=== PATIENT | male | born 1995 | race Two or more races ===

== ENCOUNTER 2022-04-20 15:57 | Outpatient (REF) | payer MEDICAID, SELFPAY ==
--- NOTE | ~2022-04-20 | XR_ITS ---
EXAMINATION: XR ELBOW, RIGHT XR FOREARM, RIGHT CLINICAL INFORMATION: Pain, numbness. COMPARISON: Radiographs right shoulder 04/20/2022, right hand 04/20/2022 TECHNIQUE: Right elbow is imaged in 3 views. Right forearm is imaged in 2 views. There are total of 5 views. FINDINGS: Elbow: No fracture, dislocation, or destructive process. Normal bony mineralization. No periostitis. No elbow capsular effusion. Articular surfaces appear intact. No joint narrowing or erosive change. Forearm: Normal bony mineralization. No fracture, dislocation, destructive process, or arthropathy. No periostitis. XR/XR forearm RT 2V IMPRESSION: Normal right elbow and forearm.
--- NOTE | ~2022-04-20 | XR_ITS ---
EXAMINATION: XR SHOULDER, RIGHT CLINICAL INFORMATION: Pain, numbness COMPARISON: None TECHNIQUE: Right shoulder is imaged in 4 views. FINDINGS: No fracture, dislocation, destructive process. Glenohumeral joint appears normal. The acromioclavicular alignment is normal. There is small oval calcification adjacent to the proximal medial humeral neck consistent with calcific tendinosis long head biceps. 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
--- NOTE | ~2022-04-20 | XR_ITS ---
EXAMINATION: XR HAND, RIGHT CLINICAL INFORMATION: Pain, numbness COMPARISON: Radiographs right forearm 04/20/2022, right hand radiographs 02/10/2019 TECHNIQUE: PA, lateral, and oblique views of the right hand. FINDINGS: No acute or healing fracture, dislocation, destructive process. Ulnar variance is within neutral. No joint narrowing or erosive changes. No periostitis. Pronator quadratus fat pad appears normal. XR/XR hand RT min 3V IMPRESSION: Normal right hand.
--- NOTE | ~2022-04-20 | XR_ITS ---
EXAMINATION: XR ELBOW, RIGHT XR FOREARM, RIGHT CLINICAL INFORMATION: Pain, numbness. COMPARISON: Radiographs right shoulder 04/20/2022, right hand 04/20/2022 TECHNIQUE: Right elbow is imaged in 3 views. Right forearm is imaged in 2 views. There are total of 5 views. FINDINGS: Elbow: No fracture, dislocation, or destructive process. Normal bony mineralization. No periostitis. No elbow capsular effusion. Articular surfaces appear intact. No joint narrowing or erosive change. Forearm: Normal bony mineralization. No fracture, dislocation, destructive process, or arthropathy. No periostitis. XR/XR elbow RT min 3V IMPRESSION: Normal right elbow and forearm.
== END 2022-04-20 15:58 | disposition home or self-care (01) ==
LOC: HO.XRAY 15:57
PROVIDERS: Absent Provider Registered Nurse; PCP Registered Nurse; Visit Provider Family Medicine
DX: M79.601 Pain in right arm (principal); R20.0 Anesthesia of skin; Z91.81 History of falling
CPT/HCPCS: 73030; 73080; 73090; 73130

== ENCOUNTER → 2022-08-30 14:11 | Outpatient (REF) | payer MEDICAID, SELFPAY ==
--- NOTE | 2022-08-30 14:16 | HM_ITS ---
Conclusion: 1. Patient was monitored for total period of 1 day and 23 hours 2. Baseline was normal sinus rhythm with average heart of 91 beats per minute 3. Frequent sinus tachycardia, 43% of total times 4. No significant pauses or bradycardia noted 5. Very rare ectopy 6. Patient reported symptoms correlated with sinus rhythm MTDD
== END ==
LOC: HO.CARD 14:11
PROVIDERS: Visit Provider Registered Nurse
DX: R00.2 Palpitations (principal)
CPT/HCPCS: 93226; 93242

== ENCOUNTER 2023-01-07 11:55 | Emergency (ER) | payer MEDICAID, SELFPAY ==
[2023-01-07 11:58] VITALS: BP 141/82; PULSE 114; RESP 18; TEMP 37.7; O2SAT 97; BMI 23.6
--- NOTE | 2023-01-07 11:59 | ED_ITS ---
HPI - General Adult General Chief complaint: Skin/Abscess/Foreign Body <GERONIMO Armando Last Filed: 01/08/23 11:43> Stated complaint: Rash <GERONIMO Armando Last Filed: 01/08/23 11:43> Time Seen by Provider: 01/07/23 13:49 <GERONIMO Armando Last Filed: 01/08/23 11:43> Source: patient <GERONIMO Perera Last Filed: 01/07/23 19:44> Mode of arrival: ambulatory <GERONIMO Perera Last Filed: 01/07/23 19:44> Limitations: no limitations <GERONIMO Perera Last Filed: 01/07/23 19:44> History of Present Illness HPI narrative: 27-year-old male presenting to the ER with complaints of itchy rash to his body and his general/penis that started over the past week and a half worse today. Reports that he recently had sexual intercourse approximately 1 and half months ago with a female he just met from his body after going to the club. He did not use protection at that time. He also reports that another female recently gave him oral intercourse although he did not do any other sexual activity. He denies any fevers, lesions to the oral area, abdominal pain, nausea vomiting or diarrhea or any other symptoms complaints or concerns at this time <GERONIMO Perera Last Filed: 01/07/23 19:44> MD complaint: Rash to body and penis <GERONIMO Perera Last Filed: 01/07/23 19:44> Onset (ago): week(s) (1 week and half) <GERONIMO Perera Last Filed: 01/07/23 19:44> Related Data Home medications: Previous Rx's Medication Instructions Recorded doxycycline monohydrate 100 mg 100 mg PO BID 10 days #20 tabs 01/07/23 tablet <GERONIMO Armando Last Filed: 01/08/23 11:43> Allergies/adverse reactions: Allergies Allergy/AdvReac Type Severity Reaction Status Date / Time No Known Allergies Allergy Unverified 07/01/20 16:49 [No Known Allergies*] <GERONIMO Armando Last Filed: 01/08/23 11:43> Review of Systems Review of Systems: Constitutional : No Weight loss, No Fever, No Chills, No Night Sweats, No Fatigue, NoMalaise ENT/Mouth: No ear pain, No sore throat, No Difficulty swallowing Cardiovascular : No Chest Pain, No SOB, No Dyspnea on Exertion, No Orthopnea, NoEdema, No Palpitations Respiratory : No Cough, No Sputum, No Wheezing, No Dyspnea Gastrointestinal : No Nausea, No Vomiting, No Diarrhea, + abdominal Pain, No Hematochezia, No Melena Genitourinary : No testicular pain, No irregular bleeding, No Dysuria, No Urinary Frequency, No Hematuria,No Urinary Incontinence, No Urgency, No Flank Pain Musculoskeletal : No joint pain, No Myalgias, No Joint Swelling Skin : + Skin Lesions to penis, + rash Neuro : No Weakness, No Numbness, No Paresthesias, No Loss of Consciousness, NoDizziness, No Headache Psych : No Social Issues, Heme/Lymph: No Bruising, No Bleeding,No Lymphadenopathy Endocrine : No Polyuria, No Polydipsia, No Temperature Intolerance <GERONIMO Perera - Last Filed: 01/07/23 19:44> Yes all other systems are reviewed and are negative <GERONIMO Perera - Last Filed: 01/07/23 19:44> [facility]LY [facility] Past Medical History Attestation statement: The following information was validated with the patient. <GERONIMO Perera - Last Filed: 01/07/23 19:44> Source: old records reviewed and nursing notes reviewed <GERONIMO Perera - Last Filed: 01/07/23 19:44> Social History Social History: Social History Advance Directives: No Advance Directives Information Provided: Yes <GERONIMO Armando Last Filed: 01/08/23 11:43> Physical Exam ED Vital Signs: Vital Signs - 24 hr 01/07/23 11:58 Temperature 99.8 F Pulse Rate 114 H Respiratory Rate 18 Blood Pressure 141/82 H Pulse Oximetry 97 Oxygen Delivery Method Room Air BMI result Body Mass Index 23.6 <GERONIMO Armando Last Filed: 01/08/23 11:43> Vital Signs - 24 hr 01/07/23 11:58 Temperature 99.8 F Pulse Rate 114 H Respiratory Rate 18 Blood Pressure 141/82 H Pulse Oximetry 97 Oxygen Delivery Method Room Air BMI result Body Mass Index 23.6 Vital signs reviewed blood pressure 141/82 pulse is 114 otherwise all other vitals are within normal limits. <GERONIMO Perera - Last Filed: 01/07/23 19:44> Appearance: Alert. Oriented X3. No acute distress. Head: Normal external exam. Normocephalic. Atraumatic. Eyes: PERRLA. EOMI. Conjunctiva and sclera normal. Eyelids normal. ENT: Pharynx normal. Uvula midline. Moist mucous membranes. Neck: Normal inspection. Neck supple. FROM. No adenopathy. No meningeal signs. CVS: Normal heart rate and rhythm. Heart sound normal. No murmurs noted. Pulses normal throughout. Respiratory: No respiratory distress. Painless inspiration. Breath sounds normal. No wheezes/rales/rhonchi noted. Chest nontender. No accessory muscle usage noted or decreased air movement noted. Abdomen: Soft and nontender. Bowel sounds normal in all 4 quadrants. No distention noted. No organomegaly noted. No visible injury noted. : Chaperoned by ZEE Black. To the external exam of the penis and the foreskin patient has painless indurated and sharply demarcated ulcers with smooth red base. The rest of the external is within normal limits. No m asses/lumps/ecchymosis/edema/erythema/lacerations/induration or tenderness noted. No hernia noted. No inguinal lymphadenopathy noted. Normal penis free of discharge. The scrotum is normal. Testicles are both descended bilaterally and appear normal. No hydrocele or scrotal mass/swelling noted. No varicocele. Epididymides normal. No blue dot sign. Back: No CVA tenderness. Full range of motion noted. Skin: Skin warm and dry. Normal skin color. Normal skin turgor. To the body patient has an erythematous well-demarcated lesions to the entire body and to bilateral palms of the hands and soles of the feet appear to look like many spots. No additional rashes/lesions/lacerations noted. Extremities: Extremities exhibit normal range of motion. Extremities nontender. Neuro: Oriented X 3. No motor deficit. No sensory deficit. Reflexes normal. <GERONIMO Perera - Last Filed: 01/07/23 19:44> Course Course Course Narrative: RME: 27 yold male presents to the ED for itchy rash in genital area and thinks he has red bumps on tip of penis with dysuria. CT/NG and UA ordered. [place]cial [place] [facility] [place] <GERONIMO Armando - Last Filed: 01/08/23 11:43> Reevaluation(s) Reevaluation #1: 27-year-old male presenting to the ER with a rash to the body and the genital area also noted to have money spots. Also noted to have painless lesions to the penis. Recent unprotected intercourse with 2 different females. Therefore labs were obtained labs are within normal limits. On my exam it appears that the patient has syphilis therefore will treat him with Benzathine penicillin 2.4 million units. Will also treat him for possible gonorrhea chlamydia with 500 mg of IM Rocephin and 100 mg of p.o. doxycycline b.i.d. I explained him if he wants HIV testing that he should go to his PCP or [facility] and to stay abstinent from any intercourse and any recent sexual partner should also be treated. Along with instructions return if any new or worsening symptoms follow up with primary care provider. Patient understands agrees with this plan. <GERONIMO Perera - Last Filed: 01/07/23 19:44> Medications Administered Discontinued Medications Generic Name Dose Route Start Last Admin Trade Name Freq PRN Reason Stop Dose Admin Ceftriaxone Sodium 500 mg/ 0 mg 01/07/23 14:54 01/07/23 15:08 Lidocaine HCl 1 ml IM 01/07/23 14:55 1 kit ONCE ONE Administration Penicillin G Benzathine 2,400,000 unit 01/07/23 14:39 01/07/23 15:08 Penicillin G Benzathine 2,400,000 Unit/4 Ml Syringe IM 01/07/23 14:40 2 ,400,000 unit ONCE ONE Administration <GERONIMO Armando - Last Filed: 01/08/23 11:43> Medications Administered Discontinued Medications Generic Name Dose Route Start Last Admin Trade Name Freq PRN Reason Stop Dose Admin Ceftriaxone Sodium 500 mg/ 0 mg 01/07/23 14:54 01/07/23 15:08 Lidocaine HCl 1 ml IM 01/07/23 14:55 1 kit ONCE ONE Administration Penicillin G Benzathine 2,400,000 unit 01/07/23 14:39 01/07/23 15:08 Penicillin G Benzathine 2,400,000 Unit/4 Ml Syringe IM 01/07/23 14:40 2,400,000 unit ONCE ONE Administration <GERONIMO Perera - Last Filed: 01/07/23 19:44> Medical Decision Making Lab Data MDM Lab Attestation statement: I reviewed the patient's lab results. <GERONIMO Perera - Last Filed: 01/07/23 19:44> Result Diagrams: 01/07/23 15:00 01/07/23 15:00 <GERONIMO Armando - Last Filed: 01/08/23 11:43> Labs: Lab Results 01/07/23 01/07/23 01/07/23 Range/Units 13:47 13:47 15:00 WBC 8.5 (4.8-10.8) X10*3/uL RBC 4.59 L (4.60-5.80) X10*6/uL Hgb 14.8 (14.0-18.0) g/dl Hct 43.9 (42.0-52.0) % MCV 95.6 (80.0-98.0) fL MCH 32.2 (27.0-33.0) pg MCHC 33.7 (31.0-36.0) g/dl RDW 12.4 (11.0-16.0) % Plt Count 268 (160-400) X10*3/uL MPV 8.7 L (9.4-12.4) fL Immature Gran % (Auto) 0.6 H (0.0-0.4) % Neut % (Auto) 68.4 (45-73) % Lymph % (Auto) 18.9 L (20-40) % [place] % (Auto) 10.4 (2-11) % Eos % (Auto) 1.5 (0-4) % Baso % (Auto) 0.2 (0-2) % Lymph # (Auto) 1.6 (1.2-4.9) X10*3/uL [place] # (Auto) 0.9 (0.1-1.2) X10*3/uL Eos # (Auto) 0.1 (0.0-0.4) X10*3/uL Baso # (Auto) 0.0 (0.0-0.2) X10*3/uL Abs Immat Gran (auto) 0.05 H (0.00-0.03) X10*3/uL Absolute Neuts (auto) 5.8 (2.0-8.3) x10*3/uL Absolute Nucleated RBC 0.000 (0.0-0.012) X10*3/uL Nucleated RBC % (auto) 0.0 (0.0-0.2) /100WBC Sodium (135-145) mmol/L Potassium (3.3-5.1) mmol/L Chloride (96-108) mmol/L Carbon Dioxide (22-29) mmol/L Anion Gap (12-20) BUN (9-16) mg/dL Creatinine (0.5-1.4) mg/dL Estim Creat Clear Calc Estimated GFR Random Glucose (60-115) mg/dL Calcium (8.4-10.2) mg/dL Magnesium (1.6-2.6) mg/dL Total Bilirubin (0.0-1.0) mg/dL AST (5-37) U/L ALT (0-40) U/L Alkaline Phosphatase (39-117) U/L Total Protein (6.5-8.0) g/dL Albumin (3.5-5.0) g/dL Urine Color Yellow Urine Appearance Clear Urine pH 5.5 (5.0-9.0) Ur Specific [place] >= 1.030 H (1.005-1.025) Urine Protein Trace (Neg-Trace) mg/dL Urine Glucose (UA) Negative (Negative) mg/dL Urine Ketones Trace (Negative) mg/dL Urine Blood Negative (Negative) Urine Nitrite Negative (Negative) Ur Leukocyte Esterase Trace H (Negative) Urine RBC 3-5 H (0-2) /HPF Urine WBC 0-5 (0-5) /HPF Ur Squamous Epith Cells 0-2 (0-2) /HPF Calcium Oxalate Crystal Present Urine Bacteria None Seen (None Seen) Hyaline Casts 0-2 (0-2) /LPF T.pallidum Ab (EIA) (Nonreactive) Chlam trachomat DNA PCR NOT DETECTED (Not Detect.) N.gonorrhoeae DNA (PCR) NOT DETECTED (Not Detect.) 01/07/23 01/07/23 Range/Units 15:00 15:00 WBC (4.8-10.8) X10*3/uL RBC (4.60-5.80) X10*6/uL Hgb (14.0-18.0) g/dl Hct (42.0-52.0) % MCV (80.0-98.0) fL MCH (27.0-33.0) pg MCHC (31.0-36.0) g/dl RDW (11.0-16.0) % Plt Count (160-400) X10*3/uL MPV (9.4-12.4) fL Immature Gran % (Auto) (0.0-0.4) % Neut % (Auto) (45-73) % Lymph % (Auto) (20-40) % [place] % (Auto) (2-11) % Eos % (Auto) (0-4) % Baso % (Auto) (0-2) % Lymph # (Auto) (1.2-4.9) X10*3/uL [place] # (Auto) (0.1-1.2) X10*3/uL Eos # (Auto) (0.0-0.4) X10*3/uL Baso # (Auto) (0.0-0.2) X10*3/uL Abs Immat Gran (auto) (0.00-0.03) X10*3/uL Absolute Neuts (auto) (2.0-8.3) x10*3/uL Absolute Nucleated RBC (0.0-0.012) X10*3/uL Nucleated RBC % (auto) (0.0-0.2) /100WBC Sodium 139 (135-145) mmol/L Potassium 3.8 (3.3-5.1) mmol/L Chloride 104 (96-108) mmol/L Carbon Dioxide 25 (22-29) mmol/L Anion Gap 14 (12-20) BUN 11 (9-16) mg/dL Creatinine 0.90 (0.5-1.4) mg/dL Estim Creat Clear Calc 121.1 Estimated GFR > 60 Random Glucose 103 (60-115) mg/dL Calcium 9.0 (8.4-10.2) mg/dL Magnesium 2.1 (1.6-2.6) mg/dL Total Bilirubin 0.4 (0.0-1.0) mg/dL AST 11 (5-37) U/L ALT 11 (0-40) U/L Alkaline Phosphatase 82 (39-117) U/L Total Protein 7.0 (6.5-8.0) g/dL Albumin 4.1 (3.5-5.0) g/dL Urine Color Urine Appearance Urine pH (5.0-9.0) Ur Specific [place] (1.005-1.025) Urine Protein (Neg-Trace) mg/dL Urine Glucose (UA) (Negative) mg/dL Urine Ketones (Negative) mg/dL Urine Blood (Negative) Urine Nitrite (Negative) Ur Leukocyte Esterase (Negative) Urine RBC (0-2) /HPF Urine WBC (0-5) /HPF Ur Squamous Epith Cells (0-2) /HPF Calcium Oxalate Crystal Urine Bacteria (None Seen) Hyaline Casts (0-2) /LPF T.pallidum Ab (EIA) Reactive A (Nonreactive) Chlam trachomat DNA PCR (Not Detect.) N.gonorrhoeae DNA (PCR) (Not Detect.) <GERONIMO Armando - Last Filed: 01/08/23 11:43> Lab Results 01/07/23 01/07/23 01/07/23 Range/Units 13:47 13:47 15:00 WBC 8.5 (4.8-10.8) X10*3/uL RBC 4.59 L (4.60-5.80) X10*6/uL Hgb 14.8 (14.0-18.0) g/dl Hct 43.9 (42.0-52.0) % MCV 95.6 (80.0-98.0) fL MCH 32.2 (27.0-33.0) pg MCHC 33.7 (31.0-36.0) g/dl RDW 12.4 (11.0-16.0) % Plt Count 268 (160-400) X10*3/uL MPV 8.7 L (9.4-12.4) fL Immature Gran % (Auto) 0.6 H (0.0-0.4) % Neut % (Auto) 68.4 (45-73) % Lymph % (Auto) 18.9 L (20-40) % [place] % (Auto) 10.4 (2-11) % Eos % (Auto) 1.5 (0-4) % Baso % (Auto) 0.2 (0-2) % Lymph # (Auto) 1.6 (1.2-4.9) X10*3/uL [place] # (Auto) 0.9 (0.1-1.2) X10*3/uL Eos # (Auto) 0.1 (0.0-0.4) X10*3/uL Baso # (Auto) 0.0 (0.0-0.2) X10*3/uL Abs Immat Gran (auto) 0.05 H (0.00-0.03) X10*3/uL Absolute Neuts (auto) 5.8 (2.0-8.3) x10*3/uL Absolute Nucleated RBC 0.000 (0.0-0.012) X10*3/uL Nucleated RBC % (auto) 0.0 (0.0-0.2) /100WBC Sodium (135-145) mmol/L Potassium (3.3-5.1) mmol/L Chloride (96-108) mmol/L Carbon Dioxide (22-29) mmol/L Anion Gap (12-20) BUN (9-16) mg/dL Creatinine (0.5-1.4) mg/dL Estim Creat Clear Calc Estimated GFR Random Glucose (60-115) mg/dL Calcium (8.4-10.2) mg/dL Magnesium (1.6-2.6) mg/dL Total Bilirubin (0.0-1.0) mg/dL AST (5-37) U/L ALT (0-40) U/L Alkaline Phosphatase (39-117) U/L Total Protein (6.5-8.0) g/dL Albumin (3.5-5.0) g/dL Urine Color Yellow Urine Appearance Clear Urine pH 5.5 (5.0-9.0) Ur Specific [place] >= 1.030 H (1.005-1.025) Urine Protein Trace (Neg-Trace) mg/dL Urine Glucose (UA) Negative (Negative) mg/dL Urine Ketones Trace (Negative) mg/dL Urine Blood Negative (Negative) Urine Nitrite Negative (Negative) Ur Leukocyte Esterase Trace H (Negative) Urine RBC 3-5 H (0-2) /HPF Urine WBC 0-5 (0-5) /HPF Ur Squamous Epith Cells 0-2 (0-2) /HPF Calcium Oxalate Crystal Present Urine Bacteria None Seen (None Seen) Hyaline Casts 0-2 (0-2) /LPF T.pallidum Ab (EIA) (Nonreactive) Chlam trachomat DNA PCR NOT DETECTED (Not Detect.) N.gonorrhoeae DNA (PCR) NOT DETECTED (Not Detect.) 01/07/23 01/07/23 Range/Units 15:00 15:00 WBC (4.8-10.8) X10*3/uL RBC (4.60-5.80) X10*6/uL Hgb (14.0-18.0) g/dl Hct (42.0-52.0) % MCV (80.0-98.0) fL MCH (27.0-33.0) pg MCHC (31.0-36.0) g/dl RDW (11.0-16.0) % Plt Count (160-400) X10*3/uL MPV (9.4-12.4) fL Immature Gran % (Auto) (0.0-0.4) % Neut % (Auto) (45-73) % Lymph % (Auto) (20-40) % [place] % (Auto) (2-11) % Eos % (Auto) (0-4) % Baso % (Auto) (0-2) % Lymph # (Auto) (1.2-4.9) X10*3/uL [place] # (Auto) (0.1-1.2) X10*3/uL Eos # (Auto) (0.0-0.4) X10*3/uL Baso # (Auto) (0.0-0.2) X10*3/uL Abs Immat Gran (auto) (0.00-0.03) X10*3/uL Absolute Neuts (auto) (2.0-8.3) x10*3/uL Absolute Nucleated RBC (0.0-0.012) X10*3/uL Nucleated RBC % (auto) (0.0-0.2) /100WBC Sodium 139 (135-145) mmol/L Potassium 3.8 (3.3-5.1) mmol/L Chloride 104 (96-108) mmol/L Carbon Dioxide 25 (22-29) mmol/L Anion Gap 14 (12-20) BUN 11 (9-16) mg/dL Creatinine 0.90 (0.5-1.4) mg/dL Estim Creat Clear Calc 121.1 Estimated GFR > 60 Random Glucose 103 (60-115) mg/dL Calcium 9.0 (8.4-10.2) mg/dL Magnesium 2.1 (1.6-2.6) mg/dL Total Bilirubin 0.4 (0.0-1.0) mg/dL AST 11 (5-37) U/L ALT 11 (0-40) U/L Alkaline Phosphatase 82 (39-117) U/L Total Protein 7.0 (6.5-8.0) g/dL Albumin 4.1 (3.5-5.0) g/dL Urine Color Urine Appearance Urine pH (5.0-9.0) Ur Specific [place] (1.005-1.025) Urine Protein (Neg-Trace) mg/dL Urine Glucose (UA) (Negative) mg/dL Urine Ketones (Negative) mg/dL Urine Blood (Negative) Urine Nitrite (Negative) Ur Leukocyte Esterase (Negative) Urine RBC (0-2) /HPF Urine WBC (0-5) /HPF Ur Squamous Epith Cells (0-2) /HPF Calcium Oxalate Crystal Urine Bacteria (None Seen) Hyaline Casts (0-2) /LPF T.pallidum Ab (EIA) Reactive A (Nonreactive) Chlam trachomat DNA PCR (Not Detect.) N.gonorrhoeae DNA (PCR) (Not Detect.) <GERONIMO Perera - Last Filed: 01/07/23 19:44> Prescription Management I considered prescription management with: Antibiotic <GERONIMO Perera - Last Filed: 01/07/23 19:44> Will treat for potential gonorrhea/chlamydia/syphilis <GERONIMO Perera - Last Filed: 01/07/23 19:44> Discharge Plan Discharge Clinical Impression: Encounter for assessment of STD exposure <GERONIMO Armando - Last Filed: 01/08/23 11:43> Patient Disposition: Home, Self-Care <GERONIMO Armando - Last Filed: 01/08/23 11:43> Instructions: Sexually Transmitted Diseases (ED), Safe Sex Practices (ED) <GERONIMO Armando - Last Filed: 01/08/23 11:43> Additional Instructions: You have pending lab results if any are positive you will be contacted within 5-7 days or you can check on your patient portal. Stay abstinent from any sexual intercourse for at least 7-14 days. Return if any new or worsening symptoms. Follow-up with [facility] for HIV testing or any additional testing. Return if any new or worsening symptoms. <GERONIMO Armando - Last Filed: 01/08/23 11:43> Prescriptions: New doxycycline monohydrate 100 mg tablet 100 mg PO BID 10 Days Qty: 20 0RF <GERONIMO Armando - Last Filed: 01/08/23 11:43> Referrals: Tessie Long FNP [Primary Care Provider] - 2 days <GERONIMO Armando - Last Filed: 01/08/23 11:43> Interventions: ED Discharge Assessment Last Done: 01/07/23 15:15 <GERONIMO Armando - Last Filed: 01/08/23 11:43> Discharge Date/Time: 01/07/23 15:16 <GERONIMO Armando - Last Filed: 01/08/23 11:43>
[2023-01-07 14:01] LABS: Appearance Urine Clear; Color Urine Yellow; Glucose Urine UA Negative (Negative); Leukocyte Esterase Urine Trace (Negative); Nitrite Urine Negative (Negative); PH 5.5 (5.0-9.0); Specific Gravity - Urine >= 1.030 (1.005-1.025); UMIC TRIGGER UACC YES; Urine Blood Negative (Negative); Urine Ketones Trace mg/dL (Negative); Urine Protein Trace mg/dL (Neg-Trace)
[2023-01-07 14:10] LABS: Bacteria Urine None Seen (None Seen); Calcium Oxalate Crystals Urine Present; Hyaline Casts Urine 0-2 /LPF (0-2); Squamous Epithelial Cell Urine 0-2 /HPF (0-2); WBC Urine 0-5 /HPF (0-5)
[2023-01-07 15:06] LABS: MANUAL DIFF FLAG NO
[2023-01-07 15:07] LABS: Basophils Percent Auto 0.2 % (0-2); Eosinophils Absolute Auto 0.1 X10*3/uL (0.0-0.4); Eosinophils Percent Auto 1.5 % (0-4); Hematocrit 43.9 % (42.0-52.0); Hemoglobin 14.8 g/dl (14.0-18.0); Imm Gran Abs Auto 0.05 X10*3/uL (0.00-0.03); Imm Gran Pct Auto 0.6 % (0.0-0.4); Lymphocytes Absolute Auto 1.6 X10*3/uL (1.2-4.9); Lymphocytes Percent Auto 18.9 % (20-40); Mean Corpuscular HGB Conc 33.7 g/dl (31.0-36.0); Mean Corpuscular Hemoglobin 32.2 pg (27.0-33.0); Mean Corpuscular Volume 95.6 fL (80.0-98.0); Mean Platelet Volume 8.7 fL (9.4-12.4); Monocytes Absolute Auto 0.9 X10*3/uL (0.1-1.2); Monocytes Percent Auto 10.4 % (2-11); Neutrophils Absolute Auto 5.8 x10*3/uL (2.0-8.3); Neutrophils Percent Auto 68.4 % (45-73); Platelet Count 268 X10*3/uL (160-400); Red Blood Count 4.59 X10*6/uL (4.60-5.80); Red Cell Distribution Width 12.4 % (11.0-16.0); White Blood Count 8.5 X10*3/uL (4.8-10.8)
[2023-01-07] MEDS: Penicillin G Benzathine 2,400,000 UNIT/4 ML SYRINGE 2400000 UNIT IM (15:08)
[2023-01-07] MEDS: cefTRIAXone sodium 500 MG, Lidocaine HCl 1 % MPF 1 ML IM (15:08)
[2023-01-07 15:25] LABS: Alanine Aminotransferase 11 U/L (0-40); Albumin Level 4.1 g/dL (3.5-5.0); Alkaline Phosphatase 82 U/L (39-117); Anion Gap 14 (12-20); Aspartate Amino Transferase 11 U/L (5-37); Bilirubin Total 0.4 mg/dL (0.0-1.0); Blood Urea Nitrogen 11 mg/dL (9-16); Carbon Dioxide 25 mmol/L (22-29); Chloride 104 mmol/L (96-108); Creatinine Clr Calc Pharmacy 121.1; Estimated Glomerular Filt Rate > 60; Glucose Random 103 mg/dL (60-115); Magnesium 2.1 mg/dL (1.6-2.6); Potassium 3.8 mmol/L (3.3-5.1); Sodium 139 mmol/L (135-145)
[2023-01-07 16:45] LABS: CT PCR NOT DETECTED (Not Detect.); NG PCR NOT DETECTED (Not Detect.)
[2023-01-08 04:21] LABS: Syphilis Screen Reactive (Nonreactive)
[2023-01-11 19:09] LABS: HSV 1 IgM IFA Negative (Negative); HSV 2 IgM IFA Negative (Negative)
[2023-01-16 12:28] LABS: RPR Quantitative Reactive 1:16 (Nonreactive); T.Pallidum Particle Agg Test Reactive (Nonreactive)
== END 2023-01-07 15:16 | disposition home or self-care (01) ==
PROVIDERS: Physician Assistant; Physician Assistant Medical; Emergency Provider Emergency Medicine; PCP Registered Nurse
DX: A53.9 Syphilis, unspecified (principal); N48.21 Abscess of corpus cavernosum and penis; L29.9 Pruritus, unspecified; Z79.899 Other long term (current) drug therapy; Z20.2 Contact with and (suspected) exposure to infections with a predominantly sexual mode of transmission
CPT/HCPCS: 0353U; 36415; 80053; 81001; 81003; 83735; 85025; 86592; 86695; 86696; 86780; 87255; 96365; 96372; 99283; 99284; J0561; J0696

== ENCOUNTER 2023-08-27 12:22 | Emergency (ER) | payer MEDICAID, SELFPAY ==
--- NOTE | ~2023-08-27 | XR_ITS ---
EXAMINATION: XR HAND, RIGHT CLINICAL INFORMATION: Pain, status post fall COMPARISON: None available. TECHNIQUE: PA, lateral, and oblique views of the right hand. FINDINGS: There is soft tissue swelling dorsally at the level of the metacarpals. No visible acute fracture or dislocation. Alignment is anatomic. Joint spaces are maintained. No abnormal soft tissue calcification. XR/XR hand RT min 3V IMPRESSION: Dorsal soft tissue swelling at the level of the metacarpals. No radiographic evidence of acute fracture or malalignment.
--- NOTE | 2023-08-27 12:30 | ED.GENADULT ---
HPI - General Adult General Chief complaint: Extremity Injury, Upper Stated complaint: R hand inj Time Seen by Provider: 08/27/23 13:41 Source: patient Mode of arrival: ambulatory Limitations: no limitations History of Present Illness HPI narrative: 28-year-old male with no known medical problems [id number] here with complaints of right hand pain after fall which occurred Sunday evening. Patient reports he tripped going up stairs hitting his right hand on the ground. He denies hitting his head or loss of consciousness. He initially had some pain and swelling but then the patient felt like it was improving but today he is now having continued pain. No associated weakness, numbness or tingling of the extremity Related Data Previous Rx's Medication Instructions Recorded doxycycline monohydrate 100 mg 100 mg PO BID 10 days #20 tabs 01/07/23 tablet Allergies Allergy/AdvReac Type Severity Reaction Status Date / Time No Known Allergies Allergy Unverified 07/01/20 16:49 [No Known Allergies*] Review of Systems Review of Systems: Yes all other systems are reviewed and are negative Constitutional: Constitutional: Reports no additional constitutional complaints, Denies body ache(s), Denies chills, Denies fever(s), Denies headache(s) and Denies weakness Eyes: Eyes: Reports no additional eye complaints and Denies change in vision ENT: Reports system reviewed and no additional complaints, except as documented, Denies dizziness, Denies headache(s), Denies nasal congestion, Denies nasal discharge and Denies neck pain Cardiovascular: Cardiovascular: Reports no additional cardiovascular complaints, Denies chest pain, Denies leg edema and Denies dyspnea Respiratory: Respiratory: Reports no additional respiratory complaints, Denies cough and Denies dyspnea Gastrointestinal: Gastrointestinal: Reports no additional gastrointestinal complaints, Denies abdominal pain, Denies diarrhea, Denies nausea and Denies vomiting Genitourinary: Genitourinary: Denies urinary incontinence Musculoskeletal: Musculoskeletal: Reports no additional musculoskeletal complaints, Denies back pain, Reports arthralgias, Denies joint swelling, Denies neck pain, Denies numbness and Denies tingling Integumentary/Breasts: Skin/Breast: Reports system reviewed and no additional complaints, except as docu and Denies rash Neurologic: Reports system reviewed and no additional complaints, except as documented, Denies Abnormal speech present, Denies dizziness, Denies headache(s), Denies numbness, Denies tingling and Denies weakness [facility] Past Medical History Attestation statement: The following information was validated with the patient. Source: old records reviewed and nursing notes reviewed Social History Social History Advance Directives: No Advance Directives Information Provided: Yes Physical Exam ED Vital Signs: Vital Signs - 24 hr 08/27/23 12:31 Temperature 97.3 F Pulse Rate 118 H Respiratory Rate 18 Blood Pressure 127/76 Pulse Oximetry 99 Oxygen Delivery Method Room Air BMI result Body Mass Index 25.4 Const General: cooperative, healthy appearing, comfortable and no acute distress Orientation/consciousness: patient oriented x3 Limitations: no limitations HENMT Head: Yes normal to inspection Ears: hearing grossly normal bilaterally General nose exam: Normal external nose present Face and sinus: Yes normal facial exam Mouth: Normal oral and palatal mucosa present Throat: Yes posterior oropharynx normal Eyes General: appearance normal, both eyes and all related structures Pupils: Equal, round and reactive pupils present Neck Neck: Yes normal visual inspection Chest Chest palpation & inspection: normal inspection of the chest Resp Effort & Inspection: normal respiratory effort Auscultation: clear to auscultation bilaterally Cardio Rate: regular rate Rhythm: regular rhythm Peripheral pulses: Peripheral pulses 2+ throughout GI Inspection: Yes normal to inspection Palpation (GI): Soft to palpation and nontender Auscultation: normal bowel sounds Back/Spine/Pelvis Thoracic/Lumbar Spine: thoracic and lumbar spine normal to inspection Skin General skin exam: no rashes or lesions noted Neuro General: patient oriented x3, no focal motor deficits and normal sensation to monofilament Cranial nerves: Yes Equal, round and reactive pupils present Cognition (Neuro): normal cognition Speech: No Abnormal speech present Gait exam (Neuro): Normal gait present Motor exam (neuro): 5/5 motor strength present throughout Extrem Other: over the right dorsal hand over the 5th metacarpal there is mild tenderness. There is no swelling or ecchymosis. There is full range of motion both passively and actively of the hand and wrist. Normal radial and ulnar pulses. Normal sensation. General: Yes normal to inspection Course Course Course Narrative: RME performed by Erin Watters PA-C. Patient is a 28 year old assigned male at presenting to the emergency department with right hand pain after a fall. Imaging ordered. Patient placed back in the waiting room pending room availability and results. Reevaluation(s) Reevaluation #1: x-ray shows no fracture. Likely contusion. Will recommend supportive care at home. Reviewed worrisome signs and symptoms of when to return to the emergency room. Comfortable plan for discharge home Medical Decision Making Medical Decision Making MDM Narrative: 28-year-old male with no known medical problems [id number] here with complaints of right hand pain after fall which occurred Sunday evening. Patient reports he tripped going up stairs hitting his right hand on the ground. He denies hitting his head or loss of consciousness. He initially had some pain and swelling but then the patient felt like it was improving but today he is now having continued pain. No associated weakness, numbness or tingling of the extremity over the right dorsal hand over the 5th metacarpal there is mild tenderness. There is no swelling or ecchymosis. There is full range of motion both passively and actively of the hand and wrist. Normal radial and ulnar pulses. Normal sensation. Will check x-rays Differential Diagnosis Differential Diagnoses: The differential diagnosis associated with the presentation includes contusion, fracture Admission/Observation Consideration of admission/observation: Escalation of care including admission/observation considered no complex fracture. Or dislocation or vascular injury requiring orthopedic emergent consultation and or advanced imaging Independent Interpretation I performed an independent interpretation of an: Plain X-Ray Interpretation: I independently reviewed the x-ray and agree with Radiology report Radiology Impression Discussion of test interpretation with radiology: I have reviewed the radiologist's reading. Radiologist Impression: [place] [id number] XRay Report Signed Patient: Arnaldo Austin MR#: [id number] : 1995 Acct:[id number] Age/Sex: 28 / M ADM Date: 08/27/23 Loc: HO.ED Attending Dr: Ordering Physician: Erin Watters Date of Service: 08/27/23 Procedure(s): XR hand RT min 3V Accession Number(s): [id number] cc: Erin Watters; Tessie Long RELIEF MATE~ EXAMINATION: XR HAND, RIGHT CLINICAL INFORMATION: Pain, status post fall COMPARISON: None available. TECHNIQUE: PA, lateral, and oblique views of the right hand. FINDINGS: There is soft tissue swelling dorsally at the level of the metacarpals. No visible acute fracture or dislocation. Alignment is anatomic. Joint spaces are maintained. No abnormal soft tissue calcification. XR/XR hand RT min 3V IMPRESSION: Dorsal soft tissue swelling at the level of the metacarpals. No radiographic evidence of acute fracture or malalignment. Tests considered The following testing was considered but not selected: no complex fracture. Or dislocation or vascular injury requiring advanced imaging Discharge Plan Discharge Clinical Impression: Contusion of hand Patient Disposition: Home, Self-Care Instructions: Contusion in Adults (ED) Additional Instructions: x-ray shows no fracture Apply ice to the area Take Motrin or Tylenol for pain as needed Prescriptions: No Action doxycycline monohydrate 100 mg tablet 100 mg PO BID 10 Days Qty: 20 0RF Referrals: Tessie Long FNP [Primary Care Provider] - 1 week (as needed) Stand Alone Forms: Work/School Release
[2023-08-27 12:31] VITALS: BP 127/76; PULSE 118; RESP 18; TEMP 36.3; O2SAT 99; BMI 25.4
== END 2023-08-27 14:50 | disposition home or self-care (01) ==
PROVIDERS: Emergency Provider Emergency Medicine; PCP Registered Nurse
DX: S60.221A Contusion of right hand, initial encounter (principal); W19.XXXA Unspecified fall, initial encounter; Y93.9 Activity, unspecified; Y92.9 Unspecified place or not applicable; Y99.9 Unspecified external cause status; M79.641 Pain in right hand
CPT/HCPCS: 73130; 99282; 99283

== ENCOUNTER 2023-09-10 15:50 | Outpatient (REF) | payer MEDICAID, SELFPAY ==
--- NOTE | ~2023-09-10 | XR_ITS ---
EXAMINATION: XR HAND, RIGHT CLINICAL INFORMATION: Hand pain. COMPARISON: 08/27/2023 TECHNIQUE: Four views of the right hand. FINDINGS: The joint spaces and alignment are preserved. Bone mineralization is normal. No displaced fracture is appreciated. Soft tissue swelling at the level of metacarpals, particularly adjacent to the 5th metacarpal and dorsal aspect of the hand. XR/XR hand RT min 3V IMPRESSION: Soft tissue swelling along the dorsal aspect of the hand, particularly adjacent to the 5th metacarpal. No displaced fracture. MRI should be considered for further evaluation if there is concern for fracture or other underlying pathology.
== END 2023-09-10 15:51 | disposition home or self-care (01) ==
LOC: HO.XRAY 15:50
PROVIDERS: PCP Nurse Practitioner Family; Visit Provider Nurse Practitioner Family
DX: M79.641 Pain in right hand (principal)
CPT/HCPCS: 73130

== ENCOUNTER 2024-09-10 11:22 | Outpatient (REF) | payer MEDICAID, SELFPAY ==
[2024-09-10 13:20] LABS: MANUAL DIFF FLAG NO
[2024-09-10 13:35] LABS: Basophils Percent Auto 0.1 % (0-2); Eosinophils Absolute Auto 0.1 X10*3/uL (0.0-0.4); Eosinophils Percent Auto 1.3 % (0-4); Hematocrit 46.8 % (42.0-52.0); Hemoglobin 15.9 g/dl (14.0-18.0); Imm Gran Abs Auto 0.07 X10*3/uL (0.00-0.03); Imm Gran Pct Auto 0.7 % (0.0-0.4); Lymphocytes Absolute Auto 2.2 X10*3/uL (1.2-4.9); Lymphocytes Percent Auto 23.1 % (20-40); Mean Corpuscular Hemoglobin 33.3 pg (27.0-33.0); Mean Corpuscular Volume 97.9 fL (80.0-98.0); Mean Platelet Volume 9.8 fL (9.4-12.4); Monocytes Absolute Auto 0.9 X10*3/uL (0.1-1.2); Monocytes Percent Auto 9.1 % (2-11); Neutrophils Absolute Auto 6.2 x10*3/uL (2.0-8.3); Neutrophils Percent Auto 65.7 % (45-73); Platelet Count 233 X10*3/uL (160-400); Red Blood Count 4.78 X10*6/uL (4.60-5.80); Red Cell Distribution Width 12.6 % (11.0-16.0); White Blood Count 9.4 X10*3/uL (4.8-10.8)
[2024-09-10 13:38] LABS: Estimated Average Glucose 103 mg/dL; Hemoglobin A1c % 5.2 % (<6.0); Total Hemoglobin (HGBA1C) 4035.0953 umol/L
[2024-09-10 13:49] LABS: Alanine Aminotransferase 26 U/L (0-40); Albumin Level 4.5 g/dL (3.5-5.0); Alkaline Phosphatase 58 U/L (39-117); Anion Gap 12 (12-20); Aspartate Amino Transferase 23 U/L (5-37); Bilirubin Total 0.4 mg/dL (0.0-1.0); Blood Urea Nitrogen 14 mg/dL (9-16); Calcium 9.5 mg/dL (8.4-10.2); Carbon Dioxide 28 mmol/L (22-29); Chloride 106 mmol/L (96-108); Cholesterol 190 mg/dL (<200); Estimated Glomerular Filt Rate > 60; Glucose Random 97 mg/dL (60-115); HDL Cholesterol 52 mg/dL (>40); LDL Cholesterol Calculated 116 mg/dL (<100); Potassium 4.4 mmol/L (3.3-5.1); Sodium 142 mmol/L (135-145); Total Protein 7.3 g/dL (6.5-8.0); Triglycerides 111 mg/dL (<150)
[2024-09-10 14:01] LABS: ~HepC Num1 4.48 S/CO (0.00-0.79); ~Hepatitis C Antibody Reactive (Nonreactive)
[2024-09-10 14:05] LABS: TSH reflex Free T4 0.21 uIU/mL (0.32-4.0); Vitamin D 25-OH Total 43.6 ng/mL (>30)
[2024-09-10 14:55] LABS: Free T4 (Free Thyroxine) 0.84 ng/dL (0.71-1.85)
[2024-09-12 13:18] LABS: HCV Log PCR <1.18 NOT DETECTED Log IU/mL (NOT DETECTED); HepC Viral Load <15 NOT DETECTED IU/mL (NOT DETECTED)
== END 2024-09-10 11:23 | disposition home or self-care (01) ==
LOC: HO.HHCL 11:22
PROVIDERS: Visit Provider Internal Medicine
DX: Z00.00 Encounter for general adult medical examination without abnormal findings (principal); L65.9 Nonscarring hair loss, unspecified
CPT/HCPCS: 36415; 80053; 80061; 82306; 83036; 84439; 84443; 85025; 86803; 87522

== ENCOUNTER 2025-04-15 22:25 | Emergency (ER) | payer MEDICAID, SELFPAY ==
--- NOTE | ~2025-04-15 | XR_ITS ---
CLINICAL HISTORY: cough Chest X-ray, 2 Views COMPARISON: None provided FINDINGS: No consolidation. No pleural effusion. No pneumothorax. No cardiomegaly. No acute fracture. IMPRESSION: No acute findings. This document has been electronically signed by: David Peralta MD on 04/16/2025 00:08:57
[2025-04-15 22:35] VITALS: BP 121/86; PULSE 110; RESP 16; TEMP 37.2; O2SAT 96; BMI 23.2
--- NOTE | 2025-04-15 22:39 | PC.NURSE ---
at bedside for primary eval.
--- NOTE | 2025-04-15 23:00 | ED_ITS ---
HPI - Nausea/Vomiting/Diarrhea General Chief complaint: Nausea/Vomiting/Diarrhea Stated complaint: vomiting Time Seen by Provider: 04/15/25 22:36 Source: patient and old records reviewed Mode of arrival: ambulatory Limitations: no limitations History of Present Illness ED Provider: RAÚL TRINIDAD Narrative: 29 yo male with no sig PMH states he drank last night and noted he felt he had a runny nose. He drank a fair amount of alcohol. He woke up this AM and felt nauseated he tried to drink coffee and threw up. He then went to court and after court tried to eat and threw up again. He feels like he has a lot of acid. He denies fevers, diarrhea, abdominal pain. He smokes 3 blunts a day. He denies travel or sick contacts. MD elicited complaint: nausea and vomiting Onset (ago): day(s) (this AM) Description of vomiting: watery Associated nausea: Yes Associated abdominal pain: No Severity: mild Exacerbating factors: eating Relieving factors: none Context: other (drank ETOH last night) Associated symptoms: loss of appetite and nausea/vomiting Related Data Previous Rx's ?Medication ?Instructions ?Recorded doxycycline monohydrate 100 mg 100 mg PO BID 10 days # 20 tabs 01/07/23 tablet famotidine 20 mg tablet (Pepcid) 20 mg PO BID abdomina l discomfort 04/15/25 #20 tabs ondansetron 4 mg disintegrating 4 mg PO Q8H PRN nausea and 04/15/25 tablet vomiting #20 tabs Allergies Allergy/AdvReac Type Severity Reaction Status Date / Time No Known Allergies (No Known Allergy Verified 04/15/25 22:36 Allergies*) Review of Systems 2 Review of Systems: Constitutional : No Fever, No Chills, No Fatigue ENT/Mouth : No sore throat, pos Rhinorrhea Eyes: No Eye Pain, No Swelling, No Redness Cardiovascular : No Chest Pain, No SOB, No Dyspnea on Exertion Respiratory : No Cough, No Sputum Gastrointestinal : pos Nausea, pos Vomiting, No Diarrhea, No abdominal Pain Genitourinary : No Dysuria, No Urinary Frequency, No Hematuria, Musculoskeletal : No joint pain, No Myalgias, No Joint Swelling Skin : No Skin Lesions, No rash Neuro : No Weakness, No Numbness, No Dizziness, no Headache All other systems reviewed and are negative Gastrointestinal: Gastrointestinal: Reports nausea PMFSH Past Medical History Attestation statement: The following information was validated with the patient. Source: old records reviewed Medical History No pertinent past medical history Social History Social History (Updated 04/15/25 @ 23:15 by Mary Grace Rasheed DO) Patient Tobacco Use Status: Never used Tobacco Advance Directives: No Advance Directives Information Provided: No Do you have a plan to hurt others: No Plan Physical Exam 2 Vital Signs: Vital Signs: Last Vital Signs Temp 98.9 F 04/15/25 22:35 Pulse 110 H 04/15/25 22:35 Resp 16 04/15/25 22:35 BP 121/86 04/15/25 22:35 Pulse Ox 96 04/15/25 22:35 O2 Del Method Room Air 04/15/25 22:35 BMI result Body Mass Index 23.2 Appearance: Alert. Oriented X3. No acute distress. Eyes: Pupils equal, round and reactive to light. ENT: Pharynx normal. Neck: Normal inspection. Neck supple. CVS: Normal heart rate and rhythm. Pulses normal. Respiratory: No respiratory distress. Breath sounds normal. Abdomen: Soft and nontender. Skin: Skin warm and dry. Normal skin color. Normal skin turgor. Extremities: No lower extremity edema. No calf ttp Neuro: Oriented X 3. No motor deficit. No sensory deficit. CN2-12 intact Medications Administered Discontinued Medications Generic Name Dose Route Start Last Admin Trade Name Freq PRN Reason Stop Dose Admin Al Hydroxide/Mg Hydroxide 15 ml 04/15/25 22:44 04/15/25 23:10 Magnesium Hydrox/Alum Hydrox 30 Ml Oral.Susp PO 04/15/25 22:45 15 ml ONCE ONE Administration Omeprazole 40 mg 04/15/25 22:44 04/15/25 23:10 Omeprazole 40 Mg Capsule. PO 04/15/25 22:45 40 mg ONCE ONE Administration Ondansetron HCl 4 mg 04/15/25 22:44 04/15/25 22:55 Ondansetron Odt 4 Mg Tab.Rapdis TRANSLINGU 04/15/25 22:45 4 mg ONCE ONE Administration Medical Decision Making Medical Decision Making MDM Narrative: 29 yo male with no sig PMH here with c/o n/v after drinking ETOH last night. He also has runny nose and cough. He has no abdominal pain no fevers, no diarrhea. He looks not toxic on exam. He has no pain to palpation to suggest appy or biliary colic. I am going to order labs and start on antacids and zofran. He possibly has gastritis, pancreatitis, viral syndrome. He will get CXR for his cough as well to look for ds causing diaphragmatic irritation. Differential Diagnosis Differential Diagnoses: The differential diagnosis associated with the presentation includes gastritis, pancreatitis, viral syndrome Admission/Observation Consideration of admission/observation: Escalation of care including admission/observation considered feels better tolerating PO stable for DC Lab Data MDM Lab Attestation statement: I reviewed the patient's lab results. suspect WBC count from vomiting 04/15/25 23:01 04/15/25 23:01 Labs: Lab Results 04/15/25 Range/Units 23:01 WBC 15.5 H (4.8-10.8) X10*3/uL RBC 4.61 (4.60-5.80) X10*6/uL Hgb 15.5 (14.0-18.0) g/dl Hct 43.2 (42.0-52.0) % MCV 93.7 (80.0-98.0) fL MCH 33.6 H (27.0-33.0) pg MCHC 35.9 (31.0-36.0) g/dl RDW 12.7 (11.0-16.0) % Plt Count 189 (160-400) X10*3/uL MPV 8.8 L (9.4-12.4) fL Immature Gran % (Auto) 0.5 H (0.0-0.4) % Neut % (Auto) 75.6 H (45-73) % Lymph % (Auto) 12.9 L (20-40) % [place] % (Auto) 8.2 (2-11) % Eos % (Auto) 2.5 (0-4) % Baso % (Auto) 0.3 (0-2) % Lymph # (Auto) 2.0 (1.2-4.9) X10*3/uL [place] # (Auto) 1.3 H (0.1-1.2) X10*3/uL Eos # (Auto) 0.4 (0.0-0.4) X10*3/uL Baso # (Auto) 0.0 (0.0-0.2) X10*3/uL Abs Immat Gran (auto) 0.08 H (0.00-0.03) X10*3/uL Absolute Neuts (auto) 11.7 H (2.0-8.3) x10*3/uL Absolute Nucleated RBC 0.000 (0.0-0.012) X10*3/uL Nucleated RBC % (auto) 0.0 (0.0-0.2) /100WBC Sodium 142 (135-145) mmol/L Potassium 4.4 (3.3-5.1) mmol/L Chloride 105 (96-108) mmol/L Carbon Dioxide 30 H (22-29) mmol/L Anion Gap 11 L (12-20) BUN 13 (9-16) mg/dL Creatinine 0.99 (0.5-1.4) mg/dL Estim Creat Clear Calc 111.6 Estimated GFR > 60 Random Glucose 89 (60-115) mg/dL Calcium 9.1 (8.4-10.2) mg/dL Magnesium 2.0 (1.6-2.6) mg/dL Total Bilirubin 0.6 (0.0-1.0) mg/dL Direct Bilirubin 0.2 (0.0-0.5) mg/dL AST 22 (5-37) U/L ALT 20 (0-40) U/L Alkaline Phosphatase 68 (39-117) U/L Total Protein 7.4 (6.5-8.0) g/dL Albumin 4.8 (3.5-5.0) g/dL Lipase 22 (8-78) U/L COVID-19 ([facility]) Negative (Negative) COVID-19 Clin Com See Note Independent Interpretation I performed an independent interpretation of an: Plain X-Ray (normal ) Radiology Impression Discussion of test interpretation with radiology: I have reviewed the radiologist's reading. External Record Review External record reviewed: Outpatient record Prescription Management I considered prescription management with: Other Discharge Plan Discharge Clinical Impression: Gastritis Qualifiers: Gastritis type: unspecified gastritis Chronicity: acute Gastritis bleeding: w ithout bleeding Qualified Code(s): K29.00 - Acute gastritis without bleeding Patient Disposition: Home, Self-Care Instructions: Gastritis (ED) Additional Instructions: your labs and xray are reassuring avoid alcohol for the next 2 weeks return for worsening pain, fevers, unable to eat or drink, black or bloody stools or any other concerns. rest and stay hydrated. Prescriptions: New famotidine [Pepcid] 20 mg tablet 20 mg PO BID Qty: 20 0RF ondansetron 4 mg tablet,disintegrating 4 mg PO Q8H PRN (Reason: nausea and vomiting) Qty: 20 0RF No Action doxycycline monohydrate 100 mg tablet 100 mg PO BID 10 Days Qty: 20 0RF Stand Alone Forms: Work/School Release Print Language: Cambodian
[2025-04-15 23:08] LABS: MANUAL DIFF FLAG NO
[2025-04-15 23:10] LABS: Hematocrit 43.2 % (42.0-52.0); Hemoglobin 15.5 g/dl (14.0-18.0); Imm Gran Abs Auto 0.08 X10*3/uL (0.00-0.03); Imm Gran Pct Auto 0.5 % (0.0-0.4); Lymphocytes Absolute Auto 2.0 X10*3/uL (1.2-4.9); Mean Corpuscular HGB Conc 35.9 g/dl (31.0-36.0); Mean Corpuscular Hemoglobin 33.6 pg (27.0-33.0); Mean Corpuscular Volume 93.7 fL (80.0-98.0); NRBC Abs Auto 0.000 X10*3/uL (0.0-0.012); NRBC Pct Auto 0.0 /100WBC (0.0-0.2); Platelet Count 189 X10*3/uL (160-400); Red Blood Count 4.61 X10*6/uL (4.60-5.80); White Blood Count 15.5 X10*3/uL (4.8-10.8)
[2025-04-15] MEDS: Magnesium Hydrox/Alum Hydrox 30 ML ORAL.SUSP 15 ML PO (23:10)
[2025-04-15 23:24] LABS: COVID-19 Test Negative (Negative); IDNOW Serial# 6674DD1D
[2025-04-15 23:29] LABS: Alanine Aminotransferase 20 U/L (0-40); Albumin Level 4.8 g/dL (3.5-5.0); Alkaline Phosphatase 68 U/L (39-117); Anion Gap 11 (12-20); Aspartate Amino Transferase 22 U/L (5-37); Blood Urea Nitrogen 13 mg/dL (9-16); Calcium 9.1 mg/dL (8.4-10.2); Carbon Dioxide 30 mmol/L (22-29); Chloride 105 mmol/L (96-108); Creatinine Clr Calc Pharmacy 111.6; Estimated Glomerular Filt Rate > 60; Lipase 22 U/L (8-78); Magnesium 2.0 mg/dL (1.6-2.6); Potassium 4.4 mmol/L (3.3-5.1); Sodium 142 mmol/L (135-145); Total Protein 7.4 g/dL (6.5-8.0)
--- NOTE | 2025-04-15 23:55 | PC.NURSE ---
pt states tolerated PO meds well, no vomit.
[2025-04-16 00:37] VITALS: BP 134/80; PULSE 92; RESP 16; TEMP 37.1; O2SAT 97
== END 2025-04-16 00:40 | disposition home or self-care (01) ==
PROVIDERS: Emergency Provider Emergency Medicine
DX: K29.00 Acute gastritis without bleeding (principal); Z11.52 Encounter for screening for COVID-19; Z79.899 Other long term (current) drug therapy
CPT/HCPCS: 71046; 80048; 80076; 83690; 83735; 85025; 87635; 99283; 99284

== ENCOUNTER → 2025-04-15 23:17 | Outpatient (BNV) | payer MEDICAID, SELFPAY | PROVIDERS: Emergency Provider Emergency Medicine; Visit Provider Radiology Diagnostic Radiology | DX: R05.9 Cough, unspecified (principal) | CPT/HCPCS: 71046 ==